=== PATIENT | female | born 1955 | race Caucasian/White ===

== ENCOUNTER 2019-03-26 10:03 | Emergency (ER) | payer MEDICARE, OTHER ==
[~2019-03-26] VITALS: Ht 162.6 cm; Wt 75.0 kg
[2019-03-26] MEDS ORDERED: FLEXERIL PO (10:30)
[2019-03-26] MEDS ORDERED: JANUMET1 TA1 PO (10:31)
[2019-03-26] MEDS ORDERED: VICTOZA18 MG/3 ML SC (10:31)
[2019-03-26] MEDS ORDERED: COZAAR25 MG PO (10:31)
[2019-03-26] MEDS ORDERED: D3 MAXIMUM5000 UNI1 PO (10:32)
[2019-03-26] MEDS ORDERED: BIOTIN EXTR10000 MCG PO (10:33)
[2019-03-26] MEDS ORDERED: HAIR SKIN & NAI1 TAB PO (10:33)
[2019-03-26] MEDS ORDERED: NAPROXEN DR500 MG PO (10:34)
[2019-03-26] MEDS ORDERED: ACIDOPHILU4 PO (10:34)
[2019-03-26] MEDS ORDERED: DIAZEPAM5 M1 PO (10:35)
[2019-03-26] MEDS ORDERED: ZOLPIDEM10 M1 PO (10:35)
[2019-03-26] MEDS ORDERED: HYDROCO/APAP1 TA9 PO (12:08)
[2019-03-26 12:30] VITALS: BP 125/78
== END 2019-03-26 12:35 | disposition home or self-care (01) ==
LOC: ED 10:03
DX: S46.912A Strain of unspecified muscle, fascia and tendon at shoulder and upper arm level, left arm, initial encounter (principal); M62.838 Other muscle spasm; E11.9 Type 2 diabetes mellitus without complications; X58.XXXA Exposure to other specified factors, initial encounter

== ENCOUNTER 2019-04-23 | Emergency (ER) | payer MEDICARE, OTHER ==
[~2019-04-23] MED LIST: ACIDOPHILU4 PO; BIOTIN EXTR10000 MCG PO; COZAAR25 MG PO; D3 MAXIMUM5000 UNI1 PO; DIAZEPAM5 M1 PO; FLEXERIL PO; HAIR SKIN & NAI1 TAB PO; HYDROCO/APAP1 TA9 PO; JANUMET1 TA1 PO; NAPROXEN DR500 MG PO; VICTOZA18 MG/3 ML SC; ZOLPIDEM10 M1 PO
== END 2019-04-23 18:50 | disposition home or self-care (01) ==
DX: S61.215A Laceration without foreign body of left ring finger without damage to nail, initial encounter (principal); E11.9 Type 2 diabetes mellitus without complications; W26.0XXA Contact with knife, initial encounter; Y93.89 Activity, other specified; Y92.009 Unspecified place in unspecified non-institutional (private) residence as the place of occurrence of the external cause